=== PATIENT | female | born 1995 | race Caucasian/White ===

== ENCOUNTER 2024-11-23 08:29 | Emergency (ER) | payer OTHER, SELFPAY ==
[2024-11-23 08:30] VITALS: BP 110/58; PULSE 99; RESP 16; TEMP 36.2; O2SAT 99; BMI 26.6
[2024-11-23 08:57] LABS: MANUAL DIFF FLAG NO
[2024-11-23 08:59] LABS: Hematocrit 41.7 % (37.0-47.0); Hemoglobin 14.4 g/dl (12.0-16.0); Imm Gran Abs Auto 0.03 X10*3/uL (0.00-0.03); Imm Gran Pct Auto 0.4 % (0.0-0.4); Lymphocytes Absolute Auto 1.8 X10*3/uL (1.2-4.9); Mean Corpuscular HGB Conc 34.5 g/dl (31.0-35.0); Mean Corpuscular Hemoglobin 28.7 pg (27.0-33.0); Mean Corpuscular Volume 83.1 fL (80.0-98.0); NRBC Abs Auto 0.000 X10*3/uL (0.0-0.012); NRBC Pct Auto 0.0 /100WBC (0.0-0.2); Platelet Count 309 X10*3/uL (160-400); Red Blood Count 5.02 X10*6/uL (4.20-5.50); White Blood Count 8.5 X10*3/uL (4.8-10.8)
[2024-11-23 09:19] LABS: Alanine Aminotransferase 9 U/L (0-31); Albumin Level 4.5 g/dL (3.5-5.0); Alkaline Phosphatase 116 U/L (39-117); Anion Gap 14 (12-20); Aspartate Amino Transferase 19 U/L (5-31); Blood Urea Nitrogen 15 mg/dL (9-16); Calcium 9.3 mg/dL (8.4-10.2); Carbon Dioxide 23 mmol/L (22-29); Chloride 105 mmol/L (96-108); Creatinine Clr Calc Pharmacy 123.3; Estimated Glomerular Filt Rate > 60; Lipase 24 U/L (8-78); Potassium 4.8 mmol/L (3.3-5.1); Sodium 137 mmol/L (135-145); Total Protein 8.2 g/dL (6.5-8.0)
[2024-11-23 10:00] VITALS: BP 115/76; PULSE 100; RESP 16; TEMP 36.9; O2SAT 99
--- NOTE | 2024-11-23 10:31 | ED.GENADULT ---
HPI - General Adult General Chief complaint: Abdominal Pain Stated complaint: vomiting, loss of appetite Time Seen by Provider: 11/23/24 10:14 Source: patient, RN notes reviewed and old records reviewed Mode of arrival: ambulatory Limitations: no limitations History of Present Illness ED Provider: Noemi [facility] narrative: Patient is a 29-year-old female presenting to the emergency department with complaint of nausea, vomiting and epigastric pain since last . States that she did have a fever on of last week but none since. Reports that she has been unable to tolerate p.o. food or fluids but also states that she was able to eat a bagel this morning and did not vomit afterwards. She denies any known sick contacts prior but states that many close contacts have become sick with similar symptoms after she develop symptoms. Denies any diarrhea. States emesis was nonbloody, nonbilious. MD complaint: Nausea and vomiting Onset (ago): week(s) Related Data Previous Rx's ?Medication ?Instructions ?Recorded ondansetron 4 mg disintegrating 4 mg PO Q8H PRN nausea and 11/23/24 tablet vomiting #10 tabs Allergies Allergy/AdvReac Type Severity Reaction Status Date / Time No Known Allergies Allergy Verified 11/23/24 08:33 Review of Systems Review of Systems: As per HPI Yes all other systems are reviewed and are negative Constitutional: Constitutional: Reports as per HPI [facility] Social History Social History Advance Directives: No Advance Directives Information Provided: Yes Patient : No Physical Exam ED Vital Signs: Vital Signs - 24 hr 11/23/24 08:30 11/23/24 10:00 11/23/24 12:00 Temperature 97.2 F 98.5 F 98.5 F Pulse Rate 99 100 102 H Respiratory Rate 16 16 15 Blood Pressure 110/58 L 115/76 118/68 Pulse Oximetry 99 99 100 Oxygen Delivery Method Room Air Room Air Room Air 11/23/24 13:57 Temperature 98.5 F Pulse Rate 88 Respiratory Rate 15 Blood Pressure 118/68 Pulse Oximetry 100 Oxygen Delivery Method Room Air BMI result Body Mass Index 26.6 Vital signs have been reviewed and appear to be correct. Blood pressure normal. Heart rate normal. Respiratory rate normal. Temperature normal. Oxygen saturation normal. Const General: cooperative, healthy appearing and no acute distress Orientation/consciousness: oriented to person, oriented to place, oriented to time and patient oriented x3 Limitations: no limitations HENMT Head: Yes normocephalic and Yes atraumatic Ears: external ears normal General nose exam: Normal external nose present Face and sinus: Yes face symmetric Mouth: oropharynx normal and moist mucous membranes Throat: Yes uvula midline Eyes Pupils: Equal, round and reactive pupils present Neck Neck: Yes normal visual inspection and Yes supple Resp Effort & Inspection: normal respiratory effort and able to speak in complete sentences Auscultation: clear to auscultation bilaterally Cardio Rate: regular rate Rhythm: regular rhythm Heart sounds: S1 normal heart sound present and S2 normal heart sound present GI Palpation (GI): Soft to palpation and Tenderness to palpation present (GI) in the epigastrum (mild) Auscultation: normoactive bowel sounds General: Yes no CVA tenderness Back/Spine/Pelvis Back: no CVA tenderness Skin General skin exam: elasticity normal and turgor normal Neuro General: oriented to person, oriented to place, oriented to time, patient oriented x3, moves all extremities, no focal motor deficits and CN's II-XI intact bilaterally Cranial nerves: Yes Equal, round and reactive pupils present Cognition (Neuro): normal cognition Extrem General: Yes full ROM, Yes no pedal edema and Yes no calf tenderness Psych Mental Status: mental status grossly normal Affect: normal affect Thought process: Normal thought process present Medications Administered Discontinued Medications Generic Name Dose Route Start Last Admin Trade Name Freq PRN Reason Stop Dose Admin Sodium Chloride 1,000 mls @ 999 mls/hr 11/23/24 10:45 11/23/24 13:39 Ns IV 11/23/24 11:45 Infused .Q1H1M SOY Infusion Ondansetron HCl 4 mg 11/23/24 10:33 11/23/24 12:14 Ondansetron Hcl 4 Mg/2 Ml Vial IVPUSH 11/23/24 10:34 4 mg ONCE ONE Administration Medical Decision Making Medical Decision Making [facility] Narrative: Patient is a 29-year-old female presenting to the emergency department with complaint of nausea, vomiting and epigastric pain since last . On exam patient is awake, A+Ox3, VS WNL, afebrile, normal neurological exam without focal deficits, physical exam findings as above. Given reported symptoms and physical exam findings, initial differential includes but is not limited to viral illness, electrolyte abnormality, dehydration, gastritis, GERD, PUD. Patient stating that she recently was positive for COVID around 3 weeks ago. Labs unremarkable. IV fluids and Zofran ordered. Patient initially declining the Zofran, but after attempting p.o. challenge felt nauseated and was given the Zofran. Patient able to tolerate p.o. food and fluids after fluids and Zofran. Feel she is stable for discharge home at this time, patient is in agreement with this. Will send prescription for Zofran. Advised follow up with PCP as needed. Return precautions discussed. Patient verbalized understanding of and agreement with plan. Differential Diagnosis Differential Diagnoses: The differential diagnosis associated with the presentation includes As per [facility] Admission/Observation Consideration of admission/observation: Escalation of care including admission/observation considered Patient would have been admitted to the hospital had their clinical presentation warranted hospital admission. Lab Data [facility] Lab Attestation statement: I reviewed the patient's lab results. as per [facility] 11/23/24 08:54 11/23/24 08:54 Labs: Lab Results 11/23/24 11/23/24 11/23/24 Range/Units 08:54 10:53 11:11 WBC 8.5 (4.8-10.8) X10*3/uL RBC 5.02 (4.20-5.50) X10*6/uL Hgb 14.4 (12.0-16.0) g/dl Hct 41.7 (37.0-47.0) % MCV 83.1 (80.0-98.0) fL MCH 28.7 (27.0-33.0) pg MCHC 34.5 (31.0-35.0) g/dl RDW 12.6 (11.0-16.0) % Plt Count 309 (160-400) X10*3/uL MPV 9.4 (9.4-12.3) fL Immature Gran % (Auto) 0.4 (0.0-0.4) % Neut % (Auto) 68.4 (45-73) % Lymph % (Auto) 21.5 (20-40) % Boyle % (Auto) 6.9 (2-11) % Eos % (Auto) 2.2 (0-4) % Baso % (Auto) 0.6 (0-2) % Lymph # (Auto) 1.8 (1.2-4.9) X10*3/uL Boyle # (Auto) 0.6 (0.1-1.2) X10*3/uL Eos # (Auto) 0.2 (0.0-0.4) X10*3/uL Baso # (Auto) 0.1 (0.0-0.2) X10*3/uL Abs Immat Gran (auto) 0.03 (0.00-0.03) X10*3/uL Absolute Neuts (auto) 5.8 (2.0-8.3) x10*3/uL Absolute Nucleated RBC 0.000 (0.0-0.012) X10*3/uL Nucleated RBC % (auto) 0.0 (0.0-0.2) /100WBC Sodium 137 (135-145) mmol/L Potassium 4.8 (3.3-5.1) mmol/L Chloride 105 (96-108) mmol/L Carbon Dioxide 23 (22-29) mmol/L Anion Gap 14 (12-20) BUN 15 (9-16) mg/dL Creatinine 0.69 (0.5-1.4) mg/dL Estim Creat Clear Calc 123.3 Estimated GFR > 60 Random Glucose 75 (60-115) mg/dL Calcium 9.3 (8.4-10.2) mg/dL Total Bilirubin 1.0 (0.0-1.0) mg/dL AST 19 (5-31) U/L ALT 9 (0-31) U/L Alkaline Phosphatase 116 (39-117) U/L Total Protein 8.2 H (6.5-8.0) g/dL Albumin 4.5 (3.5-5.0) g/dL Lipase 24 (8-78) U/L Beta HCG, Quant < 2 mIU/mL Urine Color Dark Yellow Urine Appearance Clear Urine pH 5.5 (5.0-9.0) Ur Specific [place] 1.025 (1.005-1.025) Urine Protein Trace (Neg-Trace) mg/dL Urine Glucose (UA) Negative (Negative) mg/dL Urine Ketones 80 (Negative) mg/dL Urine Blood Negative (Negative) Urine Nitrite Positive H (Negative) Ur Leukocyte Esterase Negative (Negative) Urine RBC 0-2 (0-2) /HPF Urine WBC 0-5 (0-5) /HPF Ur Squamous Epith Cells 3-5 (0-2) /HPF Urine Bacteria 1+ (None Seen) Hyaline Casts 3-5 (0-2) /LPF Influenza Type A (YAKELIN) Negative (Negative) Influenza Type B (YAKELIN) Negative (Negative) Influenza A & B Note See Note External Record Review External record reviewed: Inpatient record, Office record and Outpatient record Prescription Management I considered prescription management with: Other Discharge Plan Discharge Clinical Impression: Nausea & vomiting Qualifiers: Vomiting type: unspecified Qualified Code(s): R11.2 - Nausea with vomiting, unspecified Patient Disposition: Home, Self-Care Instructions: Acute Nausea and Vomiting (ED) Additional Instructions: You were evaluated in the emergency department today for epigastric pain, nausea and vomiting which is most likely due to irritation of the lining of your stomach. Your symptoms improved with medication in the ED. You are being prescribed ondansetron which you can use every 8 hours for nausea. You can also use Mylanta, which is available over the counter, to help manage your symptoms. Avoid spicy or acidic foods. Please follow up with your primary care physician within two days. Return to the emergency department if you experience shortness of breath, worsening or uncontrolled abdominal pain, chest pain, light headedness, faiting, persistent nausea and vomiting, bloody vomit or stools, black, tarry stools, or any other concerning symptoms. Prescriptions: New ondansetron 4 mg tablet,disintegrating 4 mg PO Q8H PRN (Reason: nausea and vomiting) Qty: 10 0RF Stand Alone Forms: Work/School Release Interventions: ED Discharge Assessment Last Done: 11/23/24 13:57 Print Language: Lebanese
[2024-11-23 11:01] LABS: Appearance Urine Clear; Glucose Urine UA Negative (Negative); PH 5.5 (5.0-9.0); Specific Gravity - Urine 1.025 (1.005-1.025); UMIC TRIGGER UACC YES
[2024-11-23 11:06] LABS: UACC Culture Trigger YES
--- NOTE | 2024-11-23 11:24 | PC.NURSE ---
Addendum entered by Inés Healy RN 11/23/24 11:25: Provider made aware. Original Note: Pt denies nausea at this time and refuses prn antiemetic
[2024-11-23 11:32] LABS: IDNOW Serial# 08D9AD1C; Influenza B2 Negative (Negative)
[2024-11-23 12:00] VITALS: BP 118/68; PULSE 102; RESP 15; TEMP 36.9; O2SAT 100
--- NOTE | 2024-11-23 12:16 | PC.NURSE ---
Pt c/o nausea after po trial w/ crackers and g'khoi. Provider notified via tigertext and medicated w/ prn antiemetic.
--- OUTSIDE RECORDS SUMMARY | 2024-11-23 12:26 | XMS_ITS | Clinical Summary ---
Author Organization Patient Business Ser [facility] Address [address] [place] [address] Care Team Providers Care Hand Endband Cutter Name Role Phone Trevor Alvarado MD Primary Care Provider [phone] Allergies No known active allergies Medications etonogestrel-elu ting contraceptive device 68 mg implant subdermal implant Inject 68 mg into the skin Once. 020 Active tirzepatide, weight loss, (Zepbound) 15 mg/0.5 mL injection Inject 0.5 mL (15 mg total) under the skin every 7 (seven) days. 2 mL 025 2024 Active Zepbound 12.5 mg/0.5 mL injectionIndicat ions:Over weight INJECT 12.5MG SUBCUTANEOUSLY ONCE EVERY 7 DAYS 2 mL 025 2024 Discontinued nirmatrelvir-rit onavir (Paxlovid) 300 mg (150 mg x 2)-100 mg tablet therapy pack Take 3 tablets by mouth every 12 (twelve) hours for 5 days. Take number of ordered nirmatrelvir (300 mg = 2 tablets) and ritonavir (100 mg = 1 tablet) tablets at the same time. 30 tablet 025 2024 Active Problems Problem Noted Date Diagnosed Date Abnormal cervical Papanicolaou smear 09/07/2024 Cholestasis (CMS/HCC V28) 09/07/2024 Folliculitis 09/07/2024 Migraine headache 09/07/2024 Sprain and strain of right ankle 02/23/2024 Sprain of unspecified ligame nt of right ankle, initial encounter 01/27/2024 Strain of unspecified muscle and tendon at ankle and foot level, right foot, initial encounter 01/27/2024 Pain in right ankle and joints of right foot Plantar fascial fibromatosis 01/27/2024 Other acquired deformities of right foot 024 Other acquired deformities of left foot 01/27/20 24 Anxiety 10/12/2022 Velamentous insertion of umbilical cord 04/24/19 20 Overview (09/07/2024): Please review ultrasound 04/21/2019 in [facility] Obesity (BMI 30-39.9) 12/14/2018 Intermittent asthma 12/14/2018 Encounters Date Type Department Care Team Description 10/26/2024 1:45 PM EDT Office Visit Walk-In Clinic - [address] [phone] Michelle Robb NP COVID (Primary Dx); Upper respiratory tract infection, unspecified type 10/02/2024 Telephone Bariatric Surgery - [address] [phone] Kala Patrick MD 09/27/2024 Telephone Bariatric Surgery - [address] [phone] Ninoska Candelaria MA from Last 3 Months Immunizations Name Administration Dates Next Due Influenza Quadravalent, MDCK , 0.5ml, preservative free (Flucelvax) 6mo and older 03/14/2019 Tdap Tetanus diptheria acell ular pertussis (Boostrix; Adacel) 7yo and older 04/22/2017 Surgical History Surgery Date Site/Laterality Comments SECTION, LOW TRANSVERSE X2 TOE SURGERY OTHER SURGICAL HISTORY FOOT TENDON SURGERY 02/13/2024 - 03/14/2024 Right Medical History Medical History Date Comments Foot pain Right Social History Tobacco Use Types Packs/Day Years Used Date Smoking Tobacco: Never Passive Smoke Exposure: Never Smokeless Tobacco: Never Tobacco Cessation:Counseling Given: Not Answered Alcohol Use Standard Drinks/Week Comments Not Currently 0 (1 standard drink = 0.6 oz pur e alcohol) mayito Housing Instability Answer Date Recorde d Are you worried that in the next 2 months you may not have stable housing? No 05/03/2024 Food Access & Nutrition Answer Date Rec orded Do you have access to a vari ety of food including fruits and vegetables? Yes 05/03/2024 Access to Healthcare Answer Date Record ed Within the last 3 months, ho w many times did you visit the emergency department for your medical care? 0 05/03/2024 Health Literacy Answer Date Recorded How often do you need to hav e someone help you when you read instructions, pamphlets, or other written material from your doctor or pharmacy? Never 05/03/2024 Caregiver: How often do you need to have someone help you when you read instructions, pamphlets, or other written material from your doctor or pharmacy? Not on file 05/03/2024 Financial Risk Answer Date Recorded How hard is it for you to pa y for the very basics like food, housing, medical care, and air conditioning / heating? Somewhat hard 05/03/2024 Transportation Answer Date Recorded Has the lack of transportati on kept you from meetings, work, or from getting things needed for daily living? No Has the lack of transportati on kept you from medical appointments or from getting medications? No 05/03/2024 Social Isolation Answer Date Recorded How often do you feel lonely or isolated from th ose around you? Never 05/03/2024 Food Risk Answer Date Recorded Within the past 12 months we worried whether our food would run out before we got money to buy more. Never true 05/03/2024 Within the past 12 months th e food we bought just didn't last and we didn't have money to get more. Never true 05/03/2024 Dependent Care Answer Date Recorded Do you need help finding or paying for care for your loved ones. For example, early childhood aide classroom or elderly care for an older adult? No 05/03/2024 Education Answer Date Recorded Do you think completing more education or training, like finishing a GED, going to college, or learning a trade, would be helpful for you? N/A 05/03/2024 Employment and Income Answer Date Recor ded During the last four weeks, have you been actively looking for work? No 05/03/2024 Living Situation Answer Date Recorded What is your living situation? 0 05/03/2024 Interpersonal Safety Answer Date Record ed Physical Abuse 02/25/2024 Verbal Abuse 02/25/2024 Comments No Sex and Gender Information Value Date Recorded Sex Assigned at Female 02/25/2024 9:00 AM EST Legal Sex Female 12:03 PM EST Gender Identity Female 02/25/2024 9:00 AM EST Sexual Orientation Straight 02/25/2024 9: 00 AM EST Obstetrics History Para Term AB IAB SAB Ectopic Multiple Livin g Live Births 2 2 2 0 0 0 2 2 Date Outcome GA Total Labor Labor/2nd/3rd Weight Sex Type Anes PTL Aleida A1 A5 Name Clin 2014 Term 41w 0d 3487 g (123 oz) M CS-Un spec Epidur al Livin g Complications:Cholestasis (C MS/HCC V28) [place] [place] 38w 3d 3430 g (121 oz) F CS-LT ranv Spinal N Livin g de asif vera MD Last Filed Vital Signs Vital Sign Reading Time Taken Comments Blood Pressure 102/62 10/26/2024 1:43 PM EDT Pulse 83 10/26/2024 1:43 PM EDT Temperature 36.5 C (97.7 F) 10/26/2024 1:43 PM EDT Respiratory Rate 14 06/01/2024 1:12 PM EDT Oxygen Saturation 98% 10/26/2024 1:43 PM EDT Inhaled Oxygen Concentration - - Weight 81.2 kg (179 lb) 08/11/2024 1:19 PM EDT Height 170.2 cm (5' 7 ) 08/03/2024 10:45 AM EDT Body Mass Index 28.04 08/03/2024 10:45 AM EDT Plan of Treatment Upcoming Encounters Date Type Department Care Team (Late st Contact Info) Description 02/06/2025 8:30 AM EST Office Visit Bariatric Surgery - [address] [place] [phone] Kala Patrick MD [address] [place] [phone] Health Maintenance Due Date Last Done Comments Hepatitis B Vaccines (1 of 3 - 19+ 3-dose series) 2013 Pneumococcal Vaccine: Pediatrics (0 to 5 Years) and At-Risk Patients (6 to 49 Years) (1 of 2 - PCV) 2013 Hepatitis C Screening 04/22/2020 COVID-19 Vaccine (1 - 2023-2 5 season) 2024 Influenza Vaccine (#1) 2024 9, 12/17/2014 Social Influencers of Health Screening 05/03/2025 05/03/2024 Cholesterol Screening (Lipid Panel) 05/15/2025 05/15/2020 DTaP,Tdap,and Td Vaccines (3 - Td or Tdap) 04/22/2027 04/22/2017, 12/17/2014 Cervical Cancer Screening: P ap Smear 05/04/2027 05/04/2024, 03/14/2019, 03/14/2019 HIV Screening Completed 03/14/2019 Depression Screening Completed 05/03/2024, 11/18/2023 HIB Vaccines Aged Out No longer eligi ble based on patient's age to complete this topic HPV Vaccines Aged Out No longer eligi ble based on patient's age to complete this topic Hepatitis A Vaccines Aged Out No long er eligible based on patient's age to complete this topic IPV Vaccines Aged Out No longer eligi ble based on patient's age to complete this topic MMR Vaccines Aged Out No longer eligi ble based on patient's age to complete this topic Meningococcal ACWY Vaccine Aged Out N o longer eligible based on patient's age to complete this topic Meningococcal B Vaccine Aged Out No l onger eligible based on patient's age to complete this topic RSV Immunization Patients Under 20 months Aged Out No longer eligible b ased on patient's age to complete this topic Varicella Vaccines Aged Out No longer eligible based on patient's age to complete this topic Medical Devices Implanted Type Area Mapper Device Identifier Shelf Expiration Date Model / Serial / Lot Implant Bioinductive W/Anaya Del Castillo Med - [facility] - [id number] Implanted:Qty: 1 on 02/25/2024 by Estrada Null DPM at [facility] [employer] Right: Foot [employer] - ENDOSCOPY 07/09/2026 [id number] / NA / [id number] Ultrabrace Kit Implanted:Qty: 2 on 02/25/2024 by Estrada Null DPM at [facility] Right: Kasandra [employer] 11/23/2026 [id number] / [id number] / [id number] Procedures Procedure Name Priority Date/Time Associated Diagnosis Comments POC RAPID [id number], MOLECULAR Routine 10/26/2024 6:48 PM EDT Upper respiratory tract infection, unspecified type PAP SMEAR Routine 05/04/2024 9:33 AM EST Encounter for annual routine gynecological examination Encounter for surveillance of Nexplanon subdermal contraceptive DEPRESSION SCREENING Routine 11/18/2023 LIPID PANEL Routine 05/15/2020 HIV SCREENING Routine 03/14/2019 from Last 3 Months or Most Recently Relevant to Health Maintenance Results * (ABNORMAL) Poc Rapid [id number], MOLECULAR (10/26/2024 6:48 PM EDT) COVID-19/SARS- COV-2 Rapid POC Positive(A ) Negative Internal Control Pass Yes Yes Swab Nasopharyngeal structure / Unknown 10/26/2024 6:48 PM EDT Michelle Robb NP POINT OF CARE TEST ENTER/EDIT ORDERABLES Final Result * Pap smear (05/04/2024 9:33 AM EST) Interpretation Negative for intraepithelial lesion or malignancy 05/08/2024 9:36 AM EST [facility] General Categorization Negative 05/08/2024 9:36 AM EST [facility] Other Findings Shift in josselin suggestive of bacterial vaginosis 05/08/2024 9:36 AM EST [facility] Specimen Adequacy Satisfactory for evaluation, endocervical/drake sformation zone component absent 05/08/2024 9:36 AM EST [facility] Pap Methodology Liquid Based Pap Test 05/08/2024 9:36 AM EST [facility] Disclaimer The Pap test is a screening test which carries an inherent false negative rate. These test results should be correlated with the patient's clinical findings and history. This Pap test was processed using an automated screening system. Technical cytopathology services provided by [facility], at [address] [place] [address] (CLIA # [id number]/Sherin Jiang MD, Filling And Stapling Machine Operator.) 05/08/2024 9:[address] [facility] Console Pap Interpretation Reported 05/08/2024 9:[address] [facility] Brushing/Spatula Cervix uteri structure / Unknown 05/04/2024 9:33 AM EST 05/04/2024 9:33 AM EST Liane Mayes [facility] CYTOLOGY ORDERABLES Final R esult [facility] [address] [place] [address], [place] [phone] * Depression Screening (11/18/2023) Pathologist [facility] Depression Screening abstracted Historical Provider HEALTH MAINTENANCE Final Result * (ABNORMAL) Lipid panel (05/15/2020) [facility] [address] LDL/HDL Ratio 6(A) 0 - 4 Triglycerides 89 0 - 150 mg/dL Cholesterol 145 0 - 200 mg/dL HDL 24(A) >=40 mg/dL LDL Cholesterol 104(A) 0 - 100 mg/dL Blood Venous blood specimen / Unknown Historical Provider LAB BLOOD ORDERABLES Kaite l Result * HIV Screening (03/14/2019) HIV Screening abstracted us Historical Provider HEALTH MAINTENANCE Final Result from Last 3 Months or Most Recently Relevant to Health Maintenance Additional Health Concerns Infection Onset Date Last Indicated COVID-19 10/26/2024 10/26/2024 Insurance [facility] Advance Directives * Full Code - Default (Latest Code Status on File) Date Activated Date Inactivated Comments 02/25/2024 9:17 AM 02/25/2024 5:28 PM This is or tomi is used when code status has not been discussed with the patient, or code status is otherwise unknown/unconfirmed To update the patient's code status, place a code status order. Do not modify or discontinue any currently active code status orders. Care Teams Hand Endband Cutter Relationship Specialty Start Date End Date Trevor Alvarado MD [address] [place] [id number] PCP - General Internal Medicine 02/13/20
--- OUTSIDE RECORDS SUMMARY | 2024-11-23 12:26 | XMS_ITS ---
Author Name [facility] Organization Unknown Care Team Organization Name Specialty Phone Email Start Date End Da te [facility] Trevor Alvarado Primary Care 07/20/2022 11/01/2023 [facility] Argelia James Primary Care 01/20/202210/13
[2024-11-23 13:57] VITALS: BP 118/68; PULSE 88; RESP 15; TEMP 36.9; O2SAT 100
[2024-11-23 14:00] VITALS: BP 116/60; PULSE 98; RESP 16; TEMP 36.9; O2SAT 100
== END 2024-11-23 14:06 | disposition home or self-care (01) ==
PROVIDERS: Registered Nurse Emergency; Emergency Provider Emergency Medicine
DX: R11.2 Nausea with vomiting, unspecified (principal); R10.13 Epigastric pain; R82.79 Other abnormal findings on microbiological examination of urine
CPT/HCPCS: 36415; 80053; 81001; 81003; 83690; 84702; 85025; 87086; 87088; 87186; 87502; 96361; 96374; 99284; J2405